=== PATIENT | male | born 1980 | race African-American/Black ===

== ENCOUNTER 2022-10-15 09:07 | Emergency (ER) | payer BC, OTHER, SELFPAY ==
[2022-10-15] VITALS (7 sets, daily range): BP systolic 115–145; BP diastolic 74–94; PULSE 80–92; RESP 13–18; TEMP 36.4; O2SAT 99–100
--- NOTE | ~2022-10-15 | XR_ITS ---
XR chest 1V portable DATE: 10/15/2022 09:35 INDICATION: Left-sided chest pain. History of hypertension. TECHNIQUE: Portable upright AP chest on 10/15/2022 at 0934 hours COMPARISON: None FINDINGS: There is mild atelectasis at the right lung base. The lungs otherwise appear clear. Cardiac images also appear within normal limits. IMPRESSION: Mild atelectasis at right lung base Reviewed, dictated and finalized at location A.
--- NOTE | 2022-10-15 09:08 | ECG_ITS ---
Measurements Intervals [place] Rate: 80 P: 57 VT: 162 QRS: 29 QRSD: 94 T: 40 QT: 361 QTc: 417 Interpretive Statements SINUS RHYTHM POSSIBLE LEFT VENTRICULAR HYPERTROPHY [VOLTAGE CRITERIA PLUS LAE OR QRS WIDENING] NO PREVIOUS ECG AVAILABLE FOR COMPARISON Electronically Signed On 10-15-2022 11:15:08 CDT by Richar Barnett MD
[2022-10-15 09:24] LABS: Basophils Percent Auto 0.4 % (0.2-1.2); Eosinophils Absolute Auto 0.1 K/mm3 (0-0.3); Eosinophils Percent Auto 0.9 % (0-4.4); Hematocrit 44.7 % (42.0-52.0); Hemoglobin 14.9 g/dL (14.0-18.0); Lymphocytes Absolute Auto 3.66 K/mm3 (0.9-3.2); Lymphocytes Percent Auto 48.9 % (18.3-44.2); Mean Corpuscular HGB Conc 33.3 g/dl (32-36); Mean Corpuscular Hemoglobin 32.7 pg (26-34); Mean Corpuscular Volume 98.2 fl (80-100); Mean Platelet Volume 9.4 fl (7.4-10.4); Monocytes Absolute Auto 0.5 K/mm3 (0.1-0.6); Monocytes Percent Auto 6.8 % (2.6-8.5); Neutrophils Absolute Auto 3.2 K/mm3 (1.3-6.7); Platelet Count Result 230 k/mm3 (150-375); Red Blood Count 4.55 M/mm3 (4.6-6.20); Red Cell Distribution Width 13.5 % (11.5-14.5); White Blood Count 7.5 K/mm3 (4.5-10.0)
--- NOTE | 2022-10-15 09:32 | ED.CHESTPAIN ---
HPI - Chest Pain General Chief Complaint: Chest Pain Stated Complaint: HTN, CP Time Seen by Provider: 10/15/22 09:15 History of Present Illness HPI narrative: 42-year-old male with a history of hypertension and asthma reports for evaluation for intermittent chest pain for the past 3 years. Patient states the pain is sharp in nature and he can pinpoint it with 1 finger over his left anterior chest wall. He states the pain occurs after he eats spicy foods and lays down and then goes away after he sits up for 30 to 40 minutes. He last had chest pain this morning at 6 AM which has since resolved. He is currently not having any chest pain. He does state at times the pain radiates to his neck and head. He denies associated nausea or vomiting. He denies shortness of breath, lower extremity edema, history of VTE, cough or congestion, fever, melena or hematochezia, hemoptysis, abdominal pain. He reports being evaluated at [facility] and [facility] within the past couple of years for chest pain and they have not found a reason. He has not followed up with a director it project. Patient is also complaining of pain to his left mid back for the past week. Reports his pain is an aching and pulling sensation that is only present when he rotates his back. He states the pain does not correlate with his chest pain and has been present consistently for 1 week. He denies recent injury or trauma, recent spinal procedures or surgeries, use of immunosuppressants or steroids, IV drug use, loss of bowel or bladder control or retention, saddle anesthesia . Reports family medical history of hypertension, denies personal or family history of ID, CVA, DM. He does smoke. Related Data Allergies Allergy/AdvReac Type Severity Reaction Status Date / Time No Known Allergies Allergy Verified 10/15/22 09:25 Review of Systems Review of Systems: CONSTITUTIONAL: Denies fever, chills EYES: Denies visual changes, redness, or discharge. ENT: Denies rhinorrhea, congestion, sore throat, or otalgia. CARDIOVASCULAR: See HPI RESPIRATORY: See HPI GASTROINTESTINAL: Denies abdominal pain, nausea, vomiting, or diarrhea. GENITOURINARY: Denies dysuria or hematuria. SKIN: Denies rash or itching. MUSCULOSKELETAL: See HPI NEUROLOGIC: Denies headache, numbness, dizziness, or weakness. PSYCHIATRIC: Denies anxiety or depression. Exam Narrative: GENERAL: Well-appearing, in no acute distress. Patient resting comfortably in exam bed. He is pleasant and conversational. He does smell of alcohol. HEAD: Normocephalic EYES: PERRLA, EOMI ENT: Nares clear. Mucous membranes moist. Oropharynx without tonsillar hypertrophy exudate or other lesions. NECK: Supple. CHEST: No respiratory distress. Clear to auscultation, no adventitious breath sounds. HEART: Regular rate and rhythm. No murmur heard. Normal peripheral pulses. ABDOMEN: Soft, nontender, normal active bowel sounds. No CVA tenderness. BACK: No midline thoracolumbar spinous tenderness, step-offs or deformities. No overlying skin changes. There is tenderness to the left paraspinous muscles that is worse with rightward and leftward rotation. EXTREMITIES: Normal range of motion. No edema. SKIN: Warm, dry, no rash. NEURO: No focal deficits. Alert and oriented x3. PSYCH: Normal mood and affect. Course Vital Signs Vital signs: Vital Signs Temperature 97.6 F 10/15/22 09:10 Pulse Rate 86 10/15/22 09:10 Respiratory Rate 15 10/15/22 09:10 Blood Pressure 145/94 H 10/15/22 09:10 Pulse Oximetry 100 10/15/22 09:10 Oxygen Delivery Room Air 10/15/22 09:10 Temperature 97.6 F 10/15/22 09:10 Pulse Rate 83 10/15/22 12:46 Respiratory Rate 16 10/15/22 12:46 Blood Pressure 129/74 10/15/22 12:46 Pulse Oximetry 99 10/15/22 12:46 Oxygen Delivery Room Air 10/15/22 09:19 MDM - Chest Pain MDM Narrative Medical decision making narrative: 42-year-old male with history of hypertension and asthma report
[2022-10-15 09:35] LABS: Prothrombin Time 13.9 Seconds (11.1-14.7)
[2022-10-15 09:36] LABS: Alanine Aminotransferase 60 U/L (6-50); Albumin Level 4.8 g/dL (3.5-5.1); Alkaline Phosphatase 82 U/L (38-126); Anion Gap 6 mmol/L (8-16); Aspartate Amino Transferase 40 U/L (17-59); Bilirubin,Total 0.5 mg/dL (0.2-1.3); Blood Urea Nitrogen 14 mg/dL (9-20); Carbon Dioxide 30 mmol/L (22-30); Chloride 107 mmol/L (98-107); Estimated CRCL calculation 116 ml/min; Estimated Glomerular Filt Rate > 60; Glucose 107 mg/dL (65-110); Lipase 289 U/L (23-300); Partial Thromboplastin Time 25.3 SECONDS (22.3-36.8); Sodium 143 mmol/L (137-145)
[2022-10-15 09:47] LABS: Troponin I < 0.012 ng/mL (0.000-0.034)
[2022-10-15 09:59] LABS: Ethanol 226 mg/dL (<10)
[2022-10-15] MEDS: CYCLOBENZAPRINE HCL 10 MG TABLET PO (10:02)
[2022-10-15 10:12] LABS: Appearance Urine Clear (Clear); Bilirubin Urine Negative (Negative); Blood Urine Negative (Negative); Color Urine Yellow (Yellow); Glucose Urine UA Negative (Negative); Ketones Urine Negative (Negative); Leukocyte Esterase Ur Negative LEU/UL (Negative); Nitrate Urine Negative (Negative); Protein Urine Negative (Negative); Specific Grav Ur 1.024 (1.001-1.035); pH Urine 5.5 (5.0-9.0)
[2022-10-15 10:25] LABS: Add Urine Microscopic? NO
[2022-10-15 12:40] LABS: Troponin I < 0.012 ng/mL (0.000-0.034)
== END 2022-10-15 13:15 | disposition home or self-care (01) ==
PROVIDERS: Emergency Medicine; Emergency Provider Physician Assistant
DX: R07.89 Other chest pain (principal); M54.6 Pain in thoracic spine; I10 Essential (primary) hypertension; J45.909 Unspecified asthma, uncomplicated
CPT/HCPCS: 36415; 71045; 80053; 80307; 81003; 83690; 84484; 85025; 85610; 85730; 93005; 99284; A9270